=== PATIENT | male | born 1970 | race Caucasian/White ===

== ENCOUNTER 2019-11-11 11:25 | Emergency (ER) | payer MEDICAID, SELFPAY ==
[2019-11-11 11:39] VITALS: BP 133/89; PULSE 114; RESP 17; TEMP 37.5; O2SAT 97; BMI 22.6
--- NOTE | 2019-11-11 11:42 | HMH.EDGENADL ---
ED Disposition Clinical Impression: Neuropathic pain of both feet Disposition: Home, Self-Care Condition on Discharge: Good Instructions: DI for Diabetic Neuropathy, DI for Peripheral Neuropathy Referrals: PCP,No [Primary Care Provider] - Time of Disposition: 11:48 - Critical Care Critical Care Time: No Attestation: On , the high probability of a clinically significant, sudden or life threatening deterioration of the following system(s) required my full and direct attention, intervention and personal management. The time I documented below is in addition to time spent performing reported procedures but includes the following listed in this critical care notation. Medical Decision Making - Medical Records Medical records reviewed: Yes: I reviewed the patient's medical records. - Zia Inquiry Pt receiving controlled substance: No Vital Signs: 11/11/19 11:39 Temperature 99.5 F Temperature Source Oral Pulse Rate [Right Radial] 114 H Respiratory Rate 17 Blood Pressure [Right Arm] 133/89 Blood Pressure Mean [Right Arm] 103 02 Sat by Pulse Oximetry 97 Oxygen Delivery Method Room Air Orders (Tests/Meds): ED MEDICATIONS Discontinued Medications Generic Name Dose Route Start Last Admin Trade Name Freq PRN Reason Stop Dose Admin Acetaminophen 325 mg 11/11/19 11:40 Acetaminophen 325mg Tab PO 11/11/19 11:41 ONCE ONE Ketorolac Tromethamine 15 mg 11/11/19 11:40 Toradol 30mg/Ml Vial IM 11/11/19 11:41 ONCE ONE ORDERS Category Date Time Status CBC [Complete Blood Count Auto Diff] Stat Lab 11/11/19 11:39 Ordered CMP [Comprehensive Metabolic Panel] Stat Lab 11/11/19 11:39 Ordered Hemoglobin A1C Stat Lab 11/11/19 11:39 Ordered Medical Decision Narrative: In summary this is a 49-year-old male with diabetes presenting to the emergency department with pain in both of his feet. Patient is clinically stable on arrival. Most likely diagnosis is diabetic neuropathy. Patient does not have a primary care doctor, but would like to establish with 1. Will draw CBC, CMP, A1c today for diabetes management. Patient given 15 mg of IM Toradol and 325mg Tylenol. Counseled that he should follow-up. May need to take a medication like gabapentin or Neurontin for neuropathy in the future. Keep feet clean and dry. Check for wounds. General Adult HPI - General Chief complaint: Extremity Injury, Lower Stated complaint: feet pain sinus Time Seen by Provider: 11/11/19 11:42 Mode of Arrival: Ambulatory Limitations: No Limitations Description of Symptoms (Recalled from ER Triage Doc. by RN): pt reports bilateral foot pain and tingling feelings. pt also concerned about his runny nose. - History of Present Illness HPI narrative: 49-year-old male presenting to the emergency department with pain in both of his feet. Pain is described as burning, [id number], sharp, located in all of his toes. He has pain throughout the day. Not particularly worse in the morning when waking up. No pain in his forefoot. No pain in his ankle or lower leg. Has been told that he has sugar diabetes and takes a pill at night. Does not check his blood sugars that the day. Does not use insulin. Has never been told that he has neuropathy. He believes that his pain started because he is walking a lot. He has shoes. Does not walk barefoot. No breaks in the skin. Patient does not from around here. He saw a doctor before who gave him a shot that seemed to help. He does not know what the medication was [facility] History - Hepatitis A Screen Drug use history?: No High risk sexual behaviors?: No History of sexually transmitted infection?: No Currently employed?: No Childcare worker?: No Do you have indoor plumbing?: Yes Do you have electricity?: Yes Attestation statement:: This patient has been screened for Hepatitis A risk factors. Medical History: Denies:: Diabetes Mellitus Type 1, Diabetes
[2019-11-11 12:11] VITALS: BP 127/84; PULSE 89; RESP 18; O2SAT 96
[2019-11-11 12:12] LABS: Basophils % 0.4 % (0.1-2.0); Eosinophils # 0.3 K/mm3 (0.0-0.4); Eosinophils % 3.7 % (0.1-12.0); Hemoglobin 13.9 g/dL (14.1-18.0); Lymphocytes # 2.2 K/mm3 (0.7-4.5); Mean Corpuscular HGB Conc 34.7 g/dL (31.8-35.4); Mean Corpuscular Hemoglobin 36.7 pg (27.0-31.2); Mean Corpuscular Volume 105.7 fl (80-94); Mean Platelet Volume 8.7 fl (7.4-10.4); Monocytes # 0.3 K/mm3 (0.1-1.0); Monocytes % 3.6 % (1.7-9.3); Neutrophils # 5.3 K/mm3 (1.8-7.8); Neutrophils % 65.2 % (37.0-80.0); Platelet Count 123 K/mm3 (142-424); Red Blood Count 3.78 M/mm3 (4.60-6.20); Red Cell Distribution Width 13.5 % (11.5-17.5); White Blood Count 8.1 K/mm3 (4.8-10.8)
[2019-11-11 12:15] LABS: Chloride 106 mmol/L (98-107); Potassium 4.1 mmoL/L (3.5-5.1); Sodium 141 mmol/L (136-145)
[2019-11-11 12:18] LABS: Alanine Aminotransferase 18 U/L (12-78); Albumin/Globulin Ratio 1.3 (1.1-1.8); Alkaline Phosphatase 59 U/L (38-126); Anion Gap 12.1 mEq/L (5-15); Aspartate Amino Transferase 25 U/L (17-59); Bilirubin,Total 0.4 mg/dl (0.2-1.3); Blood Urea Nitrogen 11 mg/dl (9-20); Calcium 9.6 mg/dl (8.4-10.2); Carbon Dioxide 27 mmol/L (22.0-30.0); Creatinine Clearance Estimated 110 mL/min (50-200); Estimated Glomerular Filt Rate 103 ml/min (>60); GFR (African American) 124 ML/MIN (>60); Globulin 3.1 g/dL (1.3-3.2); Glucose 160 mg/dl (74-100); Total Protein,Serum 7.1 g/dl (6.3-8.2)
[2019-11-11 12:28] LABS: Hemoglobin A1C 6.5 % (4.0-6.0)
[2019-11-11 12:31] VITALS: BP 120/76; PULSE 94; RESP 17; TEMP 36.8; O2SAT 99
== END 2019-11-11 12:34 | disposition home or self-care (01) ==
PROVIDERS: Emergency Provider Emergency Medicine
DX: G57.93 Unspecified mononeuropathy of bilateral lower limbs (principal); F17.210 Nicotine dependence, cigarettes, uncomplicated; R73.9 Hyperglycemia, unspecified
CPT/HCPCS: 80053; 83036; 85025; 96372; 99282

== ENCOUNTER 2019-12-13 12:29 | Emergency (ER) | payer MEDICAID, SELFPAY ==
[2019-12-13 12:44] VITALS: BP 127/93; PULSE 108; RESP 17; TEMP 36.6; O2SAT 97; BMI 22.2
[2019-12-13 13:57] VITALS: BP 127/93; PULSE 108; RESP 17; TEMP 36.7; O2SAT 97; BMI 22.1
--- NOTE | 2019-12-13 14:03 | HMH.EDUTC ---
[facility] Disposition Clinical Impression: Sinusitis Qualifiers: Sinusitis location: unspecified location Chronicity: acute Recurrence: non-recurrent Qualified Code(s): J01.90 - Acute sinusitis, unspecified Disposition: Home, Self-Care Condition on Discharge: Good Instructions: Sinusitis, DI for Sinusitis Additional Instructions: Drink plenty of fluids. Take tylenol for pain or fever. Follow up with your regular doctor. GO TO THE ER FOR ANY WORSENING SYMPTOMS Referrals: Salomon Herrera MD [Primary Care Provider] - Time of Disposition: 14:16 Medical Decision Making - Medical Records Medical records reviewed: No: I reviewed the patient's medical records. - Zia Inquiry Pt receiving controlled substance: No Vital Signs: 12/13/19 12:44 12/13/19 13:57 12/13/19 14:23 Temperature 98 F 98.0 F 98.0 F Temperature Source Oral Oral Pulse Rate 108 H Pulse Rate [Right] 108 H 108 H Respiratory Rate 17 17 17 Blood Pressure 127/93 H Blood Pressure [Right Arm] 127/93 H 127/93 H Blood Pressure Mean [Right Arm] 104 104 Blood Pressure Source [Right Arm] Automatic Cuff Blood Pressure Position [Right Arm] Sitting 02 Sat by Pulse Oximetry 97 97 Oxygen Delivery Method Room Air Orders (Tests/Meds): ED MEDICATIONS Discontinued Medications Generic Name Dose Route Start Last Admin Trade Name Freq PRN Reason Stop Dose Admin Ceftriaxone Sodium 1 gm 12/13/19 14:03 12/13/19 14:22 Ceftriaxone 1gm Vial IM 12/13/19 14:04 1 gm ONCE ONE Administration Protocol Lidocaine HCl 0 ml 12/13/19 14:03 12/13/19 14:22 Lidocaine 1% 5ml Pf Vial IM 12/13/19 14:04 2.1 ml ONCE ONE Administration Methylprednisolone Sodium Succinate 125 mg 12/13/19 14:03 12/13/19 14:22 Methylprednisolone Sod Succ 125mg Vial IM 12/13/19 14:04 125 mg ONCE ONE Administration [facility] HPI - General Stated complaint: cough,runny nose,cold Time Seen by Provider: 12/13/19 14:03 Mode of Arrival: Ambulatory Source of Information: Patient Limitations: No Limitations Description of Symptoms (Recalled from Triage Doc. by RN): C/O CONGESTION, RUNNY NOSE AND SINUSS PRESSURE FOR 2 WEEKS, DENIES FEVER OR COUGH. HEENT Symptoms (Recalled from RN notes): Yes Resp Symptoms (Recalled from RN notes): No Skin Symptoms (Recalled from RN notes): No MS Symptoms (Recalled from RN notes): No Functional Status (Recalled from RN notes): WNL - History of Present Illness Provider Complaint: He is here with a chief complaint of sinus congestion. He states that he gets a sinus infection every year. He refuses any covid testing or additional testing. He states that every year he gets this and he has to get a rocephin shot and a steroid shot and it gets him better. - Related Data Allergies Allergy/AdvReac Type Severity Reaction Status Date / Time No Known Allergies Allergy Verified 11/11/19 11:42 - Worker's Comp Is this a Worker's Comp case?: No [facility] History - Hepatitis A Screen Drug use history?: No High risk sexual behaviors?: No History of sexually transmitted infection?: No Currently employed?: No Childcare worker?: No Do you have indoor plumbing?: Yes Do you have electricity?: Yes Attestation statement:: This patient has been screened for Hepatitis A risk factors. I have reviewed the patient's past medical history: Yes Medical History: Denies:: Diabetes Mellitus Type 1, Diabetes Mellitus Type 2 - Social History Smoking Status: Current every day smoker Tobacco Type: cigarettes # Packs/Day (cigarettes): 1 Alcohol Intake: never Occupational Status: other ROS Obtained: Yes All systems reviewed & no additional complaints - Eyes Eyes: Denies eye discharge - ENT Ears, Nose, Mouth, and Throat: Reports as per HPI Physical Exam - General General appearance: alert, in no apparent distress - Head Head exam: atraumatic, normocephalic, normal inspection - Eye Eye exam: Present: nor
[2019-12-13 14:23] VITALS: BP 127/93; PULSE 108; RESP 17; TEMP 36.7; O2SAT 97
== END 2019-12-13 14:30 | disposition home or self-care (01) ==
PROVIDERS: Emergency Provider Nurse Practitioner Family; PCP Emergency Medicine
DX: J01.90 Acute sinusitis, unspecified (principal); F17.210 Nicotine dependence, cigarettes, uncomplicated
CPT/HCPCS: 96372; 99201